=== PATIENT | female | born 1970 | race American Indian/Alaskan Native ===

== ENCOUNTER 2021-07-27 09:46 | Emergency (ER) | payer SELFPAY ==
[2021-07-27 10:11] VITALS: BP 182/109
[2021-07-27] MEDS ORDERED: dexAMETHasone 4 MG/ML VIAL IM ONE (10:40)
[2021-07-27] MEDS ORDERED: CYCLOBENZAPRINE 10 MG TAB PO ONE (10:40)
[2021-07-27] MEDS ORDERED: IBUPROFEN 800 MG TAB PO ONE (10:40)
--- NOTE | 2021-07-27 10:43 | Emergency Department Report ---
ED Back Pain/Injury HPI - General Chief Complaint: Back Pain/Injury Stated Complaint: LT LEG PAIN Time Seen by Provider: 07/27/21 10:35 Source: patient Limitations: No Limitations - History of Present Illness Initial Comments: 56 yo comes to er with left hip pain radiating to r leg. Seen last week at [place] and was told it was arthritis. She did not believe them so she comes here No trauma/fall Did not follow up with pcp ambulatory and nad in triage no cp no sob no dysuria no back pain no abd pain no vag d/c no fever no chills Complaint: other -: Gradual, week(s) Similar Symptoms Previously: Yes Place: home Radiation: none Severity: moderate Quality: burning Consistency: intermittent Improves With: immobilization Worsens With: movement Associated Symptoms: denies other symptoms. denies: confusion, weakness, chest pain, numbness, difficulty walking, cough, difficulty urinating, diaphoresis, incontinence, fever/chills, constipation, headaches, abdominal pain, loss of appetite, malaise, nausea/vomiting, rash, seizure, shortness of breath, syncope - Related Data Previous Rx's Medication Instructions Recorded Last Taken Type Cyclobenzaprine [Flexeril] 10 mg PO TID PRN #10 tablet 07/27/21 Unknown Rx Ibuprofen [Motrin] 800 mg PO Q8HR PRN #30 tablet 07/27/21 Unknown Rx predniSONE [Deltasone] 20 mg PO DAILY #5 tablet 07/27/21 Unknown Rx Allergies Allergy/AdvReac Type Severity Reaction Status Date / Time No Known Allergies Allergy Unverified 07/27/21 10:10 ED Review of Systems ROS: Stated complaint: LT LEG PAIN Other details as noted in HPI Comment: All other systems reviewed and negative ED Past Medical Hx - Past Medical History Previous Medical History?: Yes Hx Hypertension: Yes Hx Diabetes: Yes - Surgical History Past Surgical History?: Yes Additional Surgical History: tubal - Family History Family history: no significant - Social History Smoking Status: Never Smoker Substance Use Type: None - Medications Home Medications: Home Medications Medication Instructions Recorded Confirmed Last Taken Type Cyclobenzaprine [Flexeril] 10 mg PO TID PRN #10 tablet 07/27/21 Unknown Rx Ibuprofen [Motrin] 800 mg PO Q8HR PRN #30 tablet 07/27/21 Unknown Rx predniSONE [Deltasone] 20 mg PO DAILY #5 tablet 07/27/21 Unknown Rx ED Physical Exam - General Limitations: No Limitations General appearance: alert, in no apparent distress - Head Head exam: Present: atraumatic, normocephalic - Eye Eye exam: Present: normal appearance - ENT ENT exam: Present: mucous membranes moist - Neck Neck exam: Present: normal inspection - Respiratory Respiratory exam: Present: normal lung sounds bilaterally. Absent: respiratory distress - Cardiovascular Cardiovascular Exam: Present: regular rate, normal rhythm. Absent: systolic murmur, diastolic murmur, rubs, gallop - GI/Abdominal GI/Abdominal exam: Present: soft, normal bowel sounds - Extremities Exam Extremities exam: Present: normal inspection - Back Exam Back exam: Present: normal inspection - Neurological Exam Neurological exam: Present: alert, oriented X3 - Psychiatric Psychiatric exam: Present: normal affect, normal mood - Skin Skin exam: Present: warm, dry, intact, normal color. Absent: rash ED Course Vital Signs 07/27/21 10:10 Temperature 98.1 F Pulse Rate 86 Respiratory 20 Rate Blood Pressure 182/109 [Right] O2 Sat by Pulse 95 Oximetry ED Medical Decision Making - Medical Decision Making Vital Signs 07/27/21 10:10 Temperature 98.1 F Pulse Rate 86 Respiratory 20 Rate Blood Pressure 182/109 [Right] O2 Sat by Pulse 95 Oximetry medicated with decadron/flexeril/motrin in ER taking bp meds but pt states bp is elevated due to pain no cp no sob bg 110 pos right straight leg raise dc home with dc plan of care including diet/activity/meds/follow up. She will monitor bp and bg given prednisone. referral to local pcp provided - Differential Diagnosis sciatica Critical care attestation.: If time is entered above; I have spent that time in minutes in the direct care of this critically ill patient, excluding procedure time. ED Disposition Clinical Impression: Hypertension Sciatica Qualifiers: Laterality: right Qualified Code(s): M54.31 - Sciatica, right side Disposition: 01 HOME / SELF CARE / HOMELESS Is pt being admited?: No Does the pt Need Aspirin: No Condition: Stable Instructions: Hypertension (ED), Sciatica Additional Instructions: warm baths and compresses will help meds as ordered today monitor you bp monitor blood glucose follow up with pcp referral below continue home meds Referrals: ROLANDO GARAY MD [Staff Physician] - 3-5 Days Time of Disposition: 10:42
== END 2021-07-27 11:16 | disposition home or self-care (01) ==
LOC: ED 09:46
DX: I10 Essential (primary) hypertension (principal); M54.30 Sciatica, unspecified side; E11.9 Type 2 diabetes mellitus without complications; Z98.51 Tubal ligation status
CPT/HCPCS: 96372; 99282; J1100

== ENCOUNTER 2021-08-17 18:54 | Emergency (ER) | payer SELFPAY ==
[2021-08-17] MEDS ORDERED: SODIUM CHLORIDE 0.9% 1000 ML 1,000 ML IV ONE (20:09)
[2021-08-17] MEDS ORDERED: METOCLOPRAMIDE 10 MG/2 ML INJ IV ONE (20:09)
[2021-08-17] MEDS ORDERED: MECLIZINE 25 MG TAB PO ONE (20:09)
[2021-08-17] MEDS ORDERED: diphenhydrAMINE 50 MG/ML VIAL IV ONE (20:09)
[2021-08-17] MEDS ORDERED: diphenhydrAMINE 50 MG/ML VIAL ONE (20:31)
--- NOTE | 2021-08-17 20:45 | Emergency Department Report ---
ED Dizziness HPI - General Chief Complaint: Dizziness Stated Complaint: DIZZY Time Seen by Provider: 08/17/21 19:42 Source: EMS Mode of arrival: Stretcher Limitations: No Limitations - History of Present Illness Initial Comments: Patient is a 51-year-old female presents emergency room with complaints of dizziness that began approximately 3 hours ago. Patient states is worse with certain positions and last for a few seconds. She states that it feels like the room is spinning around. She has associated nausea and vomiting. Patient states that she also has a headache which is around her head. She denies any vision changes, diarrhea, numbness, weakness, speech disturbance, chest pain, shortness of breath. No allergies to medications. Past medical history of diabetes and hypertension. - Related Data Previous Rx's Medication Instructions Recorded Last Taken Type Cyclobenzaprine [Flexeril] 10 mg PO TID PRN #10 tablet 07/27/21 Unknown Rx Ibuprofen [Motrin] 800 mg PO Q8HR PRN #30 tablet 07/27/21 Unknown Rx predniSONE [Deltasone] 20 mg PO DAILY #5 tablet 07/27/21 Unknown Rx Butalb/Acetaminophen/Caffeine 1 cap PO Q8HR PRN #14 cap 08/17/21 Unknown Rx [Fioricet 50-300-40 mg CAP] Meclizine [Antivert] 25 mg PO TID PRN #30 tab 08/17/21 Unknown Rx Allergies Allergy/AdvReac Type Severity Reaction Status Date / Time No Known Allergies Allergy Verified 08/17/21 20:32 ED Review of Systems ROS: Stated complaint: DIZZY Other details as noted in HPI Comment: All other systems reviewed and negative ED Past Medical Hx - Past Medical History Hx Hypertension: Yes Hx Diabetes: Yes - Surgical History Additional Surgical History: tubal - Social History Smoking Status: Never Smoker Substance Use Type: None - Medications Home Medications: Home Medications Medication Instructions Recorded Confirmed Last Taken Type Cyclobenzaprine [Flexeril] 10 mg PO TID PRN #10 tablet 07/27/21 Unknown Rx Ibuprofen [Motrin] 800 mg PO Q8HR PRN #30 tablet 07/27/21 Unknown Rx predniSONE [Deltasone] 20 mg PO DAILY #5 tablet 07/27/21 Unknown Rx Butalb/Acetaminophen/Caffeine 1 cap PO Q8HR PRN #14 cap 08/17/21 Unknown Rx [Fioricet 50-300-40 mg CAP] Meclizine [Antivert] 25 mg PO TID PRN #30 tab 08/17/21 Unknown Rx ED Physical Exam - General Limitations: No Limitations General appearance: alert, in no apparent distress - Head Head exam: Present: atraumatic, normocephalic - Eye Eye exam: Present: normal appearance, PERRL, EOMI - ENT ENT exam: Present: mucous membranes moist - Neck Neck exam: Present: normal inspection, full ROM. Absent: tenderness, meningismus - Respiratory Respiratory exam: Present: normal lung sounds bilaterally. Absent: respiratory distress, wheezes, rales, rhonchi, stridor, chest wall tenderness, accessory muscle use, decreased breath sounds, prolonged expiratory - Cardiovascular Cardiovascular Exam: Present: regular rate, normal rhythm, normal heart sounds. Absent: systolic murmur, diastolic murmur, rubs, gallop - Neurological Exam Neurological exam: Present: alert, oriented X3, CN II-XII intact. Absent: motor sensory deficit - Psychiatric Psychiatric exam: Present: normal affect, normal mood - Skin Skin exam: Present: warm, dry, intact ED Course Vital Signs 08/17/21 08/17/21 08/17/21 22:52 22:57 22:58 Temperature 98.9 F Pulse Rate 95 H Pulse Rate [ 95 H Lying] Pulse Rate [ 96 H Sitting] Pulse Rate [ 109 H Standing] Respiratory 17 Rate Blood Pressure 168/99 Blood Pressure 168/99 [Lying] Blood Pressure 168/99 [Right] Blood Pressure 154/87 [Sitting] Blood Pressure 197/115 [Standing] O2 Sat by Pulse 97 Oximetry 08/17/21 08/17/21 08/17/21 23:01 23:15 23:31 Temperature Pulse Rate Pulse Rate [ Lying] Pulse Rate [ Sitting] Pulse Rate [ Standing] Respiratory Rate Blood Pressure 197/115 151/90 160/92 Blood Pressure [Lying] Blood Pressure [Right] Blood Pressure [Sitting] Blood Pressure [Standing] O2 Sat by Pulse 93 92 90 Oximetry 08/17/21 08/17/21 08/18/21 23:45 23:55 00:15 Temperature 98.0 F Pulse Rate 108 H Pulse Rate [ Lying] Pulse Rate [ Sitting] Pulse Rate [ Standing] Respiratory 17 18 Rate Blood Pressure 161/90 Blood Pressure [Lying] Blood Pressure 161/90 [Right] Blood Pressure [Sitting] Blood Pressure [Standing] O2 Sat by Pulse 91 91 Oximetry ED Medical Decision Making - Lab Data Result diagrams: 08/17/21 20:21 08/17/21 20:21 Lab Results 08/17/21 08/17/21 08/17/21 Range/Units 20:21 20:21 23:06 WBC 9.7 (4.5-11.0) K/mm3 RBC 4.62 (3.65-5.03) M/mm3 Hgb 13.6 (10.1-14.3) gm/dl Hct 41.4 (30.3-42.9) % MCV 90 (79-97) fl MCH 30 (28-32) pg MCHC 33 (30-34) % RDW 14.1 (13.2-15.2) % Plt Count 226 (140-440) K/mm3 Lymph % (Auto) 15.2 (13.4-35.0) % Sharp % (Auto) 3.8 (0.0-7.3) % Eos % (Auto) 0.2 (0.0-4.3) % Baso % (Auto) 0.3 (0.0-1.8) % Lymph # (Auto) 1.5 (1.2-5.4) K/mm3 Sharp # (Auto) 0.4 (0.0-0.8) K/mm3 Eos # (Auto) 0.0 (0.0-0.4) K/mm3 Baso # (Auto) 0.0 (0.0-0.1) K/mm3 Seg Neutrophils % 80.5 H (40.0-70.0) % Seg Neutrophils # 7.8 H (1.8-7.7) K/mm3 Sodium 140 (137-145) mmol/L Potassium 3.4 L (3.6-5.0) mmol/L Chloride 101.7 (98-107) mmol/L Carbon Dioxide 23 (22-30) mmol/L Anion Gap 19 mmol/L BUN 17 (7-17) mg/dL Creatinine 0.7 (0.6-1.2) mg/dL Estimated GFR > 60 ml/min BUN/Creatinine Ratio 24 % Glucose 194 H (65-100) mg/dL Calcium 10.1 (8.4-10.2) mg/dL Magnesium 1.90 (1.7-2.3) mg/dL Total Bilirubin 0.30 (0.1-1.2) mg/dL AST 20 (5-40) units/L ALT 20 (7-56) units/L Alkaline Phosphatase 87 (35-129) units/L Total Creatine Kinase 242 H (30-135) units/L Total Protein 8.2 (6.3-8.2) g/dL Albumin 4.9 (3.9-5) g/dL Albumin/Globulin Ratio 1.5 % Urine Color Yellow (Yellow) Urine Turbidity Clear (Clear) Urine pH 5.0 (5.0-7.0) Ur Specific [place] 1.018 (1.003-1.030) Urine Protein 30 mg/dl (Negative) mg/dL Urine Glucose (UA) 150 (Negative) mg/dL Urine Ketones Neg (Negative) mg/dL Urine Blood Neg (Negative) Urine Nitrite Neg (Negative) Urine Bilirubin Neg (Negative) Urine Urobilinogen < 2.0 (<2.0) mg/dL Ur Leukocyte Esterase Neg (Negative) Urine WBC (Auto) 1.0 (0.0-6.0) /HPF Urine RBC (Auto) 1.0 (0.0-6.0) /HPF U Epithel Cells (Auto) 7.0 (0-13.0) /HPF Urine Mucus Few /HPF Vital Signs 08/17/21 08/17/21 08/17/21 22:52 22:57 22:58 Temperature 98.9 F Pulse Rate 95 H Pulse Rate [ 95 H Lying] Pulse Rate [ 96 H Sitting] Pulse Rate [ 109 H Standing] Respiratory 17 Rate Blood Pressure 168/99 Blood Pressure 168/99 [Lying] Blood Pressure 168/99 [Right] Blood Pressure 154/87 [Sitting] Blood Pressure 197/115 [Standing] O2 Sat by Pulse 97 Oximetry 08/17/21 08/17/21 08/17/21 23:01 23:15 23:31 Temperature Pulse Rate Pulse Rate [ Lying] Pulse Rate [ Sitting] Pulse Rate [ Standing] Respiratory Rate Blood Pressure 197/115 151/90 160/92 Blood Pressure [Lying] Blood Pressure [Right] Blood Pressure [Sitting] Blood Pressure [Standing] O2 Sat by Pulse 93 92 90 Oximetry 08/17/21 08/17/21 08/18/21 23:45 23:55 00:15 Temperature 98.0 F Pulse Rate 108 H Pulse Rate [ Lying] Pulse Rate [ Sitting] Pulse Rate [ Standing] Respiratory 17 18 Rate Blood Pressure 161/90 Blood Pressure [Lying] Blood Pressure 161/90 [Right] Blood Pressure [Sitting] Blood Pressure [Standing] O2 Sat by Pulse 91 91 Oximetry - EKG Data EKG shows normal: sinus rhythm Rate: normal - EKG Data 08/17/21 23:48 LAD prolonged OK interval 209 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 COMPARISON: None available. FINDINGS: BRAIN/INTRACRANIAL STRUCTURES: Unenhanced CT images of the brain demonstrate no evidence of acute abnormality. Ventricles and sulci are in size and shape. Incidental note is made of a cavum septum pellucidum, a normal variant There is no evidence of acute ischemic injury, hemorrhage, or mass. There are no abnormal extra- axial fluid collections. Atherosclerotic vascular calcifications are present in the distal internal carotid arteries and vertebral arteries. EXTRACRANIAL STRUCTURES: Unremarkable. IMPRESSION: No acute abnormality. All CT scans at this location are performed using dose reduction to ALARA by means of automated exposure control. Signer Name: Hakan Dale MD Signed: 08/17/2021 9:47 PM Workstation Name: [id number] Transcribed By: AO Dictated By: Hakan Dale MD Electronically Authenticated By: Hakan Dale MD Signed Date/Time: 08/17/212146 DD/ 44 TD/TT: - Medical Decision Making Patient is a 51-year-old female presents emergency room with complaints of d izziness that began approximately 3 hours ago. Patient states is worse with certain positions and last for a few seconds. She states that it feels like the room is spinning around. She has associated nausea and vomiting. Patient states that she also has a headache which is around her head. She denies any vision changes, diarrhea, numbness, weakness, speech disturbance, chest pain, shortness of breath. No allergies to medications. Past medical history of diabetes and hypertension. Vitals are stable. Patient has no orthostatic hypotension. Patient has no focal neuro deficits on exam. Labs are stable. UA without evidence of UTI. EKG shows left anterior fascicular block, left axis d eviation, LVH, no old EKG for comparison, no signs of arrhythmia. CT head No acute abnormality. Patient given 1 L IV fluid, meclizine, Benadryl, Reglan and on reexamination dizziness completely resolved and she no longer had any nausea and had no further episodes of vomiting was able to tolerate p.o. intake without difficulty. Patient states that she was still having a headache like a band ar ound her head, patient given Fioricet. Discussed the importance of outpatient primary care, ENT, neurology follow-up. Advised patient Please take medication as prescribed as needed. Increase your fluid intake. Follow-up with your primary care doctor. Please take your blood pressure medication as prescribed your doctor. Follow-up with ear nose and throat doctor. Follow-up with a neurologist. Return to emergency room for any new or worsening symptoms. Critical care attestation.: If time is entered above; I have spent that time in minutes in the direct care of this critically ill patient, excluding procedure time. ED Disposition Clinical Impression: Dizziness, Elevated blood pressure reading Headache Qualifiers: Headache type: unspecified Headache chronicity pattern: acute headache Intractability: not intractable Qualified Code(s): R51.9 - Headache, unspecified Nausea & vomiting Qualifiers: Vomiting type: unspecified Qualified Code(s): R11.2 - Nausea with vomiting, unspecified Disposition: 01 HOME / SELF CARE / HOMELESS Is pt being admited?: No Does the pt Need Aspirin: No Condition: Stable Instructions: General Headache Without Cause, [id number], Dizziness Additional Instructions: Please take medication as prescribed as needed. Increase your fluid intake. Follow-up with your primary care doctor. Please take your blood pressure medication as prescribed your doctor. Follow-up with ear nose and throat doctor. Follow-up with a neurologist. Return to emergency room for any new or worsening symptoms. Prescriptions: Meclizine [Antivert] 25 mg PO TID PRN #30 tab PRN Reason: Vertigo Butalb/Acetaminophen/Caffeine [Fioricet 50-300-40 mg CAP] 1 cap PO Q8HR PRN #14 cap PRN Reason: headache Referrals: ROLANDO GARAY MD [Primary Care Provider] - 3-5 Days LIOR KAHN MD [Referring] - 3-5 Days KATERINA PERSAUD MD [Referring] - 3-5 Days Time of Disposition: 23:43 Print Language: UZBEK
[2021-08-17 21:08] LABS: Basophils % (Auto) 0.3 % (0.0-1.8); Eosinophils % (Auto) 0.2 % (0.0-4.3); Hematocrit 41.4 % (30.3-42.9); Hemoglobin 13.6 gm/dl (10.1-14.3); Lymphocytes # (Auto) 1.5 K/mm3 (1.2-5.4); Lymphocytes % (Auto) 15.2 % (13.4-35.0); Mean Corpuscular HGB Conc 33 % (30-34); Mean Corpuscular Volume 90 fl (79-97); Monocytes # (Auto) 0.4 K/mm3 (0.0-0.8); Monocytes % (Auto) 3.8 % (0.0-7.3); Platelet Count 226 K/mm3 (140-440); Red Blood Count 4.62 M/mm3 (3.65-5.03); Red Cell Distribution Width 14.1 % (13.2-15.2)
[2021-08-17 21:35] LABS: Alanine Aminotransferase 20 units/L (7-56); Albumin 4.9 g/dL (3.9-5); Blood Urea Nitrogen 17 mg/dL (7-17); Calcium 10.1 mg/dL (8.4-10.2); Hemolysis Index 4
[2021-08-17 21:38] LABS: BUN/Creatinine Ratio 24
--- NOTE | 2021-08-17 21:52 | Cat Scan Report ---
CT BRAIN: 08/17/2021 INDICATION / CLINICAL INFORMATION: dizziness, TOPETE, n/v. COMPARISON: None available. FINDINGS: BRAIN/INTRACRANIAL STRUCTURES: Unenhanced CT images of the brain demonstrate no evidence of acute abn ormality. Ventricles and sulci are in size and shape. Incidental note is made of a cavum septum pellucidum, a n ormal variant There is no evidence of acute ischemic injury, hemorrhage, or mass. There are no abnormal extra-axial fluid collections. Atherosclerotic vascular calcifications are present in the distal internal carotid arteries and verte bral arteries. EXTRACRANIAL STRUCTURES: Unremarkable. IMPRESSION: No acute abnormality. All CT scans at this location are performed using dose reduction to ALARA by means of automated expos ure control. Signer Name: Hakan Dale MD Signed: 08/17/2021 9:47 PM Workstation Name: [id number]
[2021-08-17 23:31] LABS: Bilirubin,Urine NEG (Negative); Blood,Urine NEG (Negative); Color,Urine Yellow (Yellow); Mucus,Urine FEW /HPF; Urobilinogen,Urine < 2.0 mg/dL (<2.0)
[2021-08-17] MEDS ORDERED: BUTALB/ACETAMINOPHEN/CAFFEINE TAB PO ONE (23:42)
[2021-08-18 00:15] VITALS: BP 161/90
--- NOTE | 2021-08-18 08:10 | Electrocardiograph Report ---
[facility] Test Date: 2021-08-17 Test Time: 23:18:05 Pat Name: SYL HAILE Department: Room: Gender: F Account Collector: EMMA : 1970 Requested By: NIKKI BARAKAT Order Number: [id number] Reading MD: Thuan Roque Measurements Intervals [place] Rate: 94 P: 64 WV: 209 QRS: -58 QRSD: 95 T: 132 QT: 411 QTc: 514 Interpretive Statements Sinus rhythm Prolonged WV interval Probable left atrial enlargement Left anterior fascicular block LVH with secondary repolarization abnormality Prolonged QT interval No previous ECG available for comparison Electronically Signed On 08-18-2021 8:09:52 EDT by Thuan Roque
== END 2021-08-18 00:16 | disposition home or self-care (01) ==
LOC: ED 18:54
DX: R42 Dizziness and giddiness (principal); R03.0 Elevated blood-pressure reading, without diagnosis of hypertension; R51.9 Headache, unspecified; R11.2 Nausea with vomiting, unspecified; I10 Essential (primary) hypertension; E11.9 Type 2 diabetes mellitus without complications; Z79.899 Other long term (current) drug therapy
CPT/HCPCS: 36415; 70450; 80053; 81001; 82550; 83735; 85025; 93005; 96361; 96374; 96375; 99284; J1200; J2765; J7030; 96365; Q0162

== ENCOUNTER 2021-08-21 17:01 | Emergency (ER) | payer SELFPAY ==
--- NOTE | 2021-08-21 23:13 | Emergency Department Report ---
ED General Adult HPI - General Chief complaint: High BP Stated complaint: HBP/DIZZINESS Source: EMS Mode of arrival: Stretcher Limitations: No Limitations - History of Present Illness Initial comments: Patient is a 51-year-old -[place] female with a history of hypertension and [id number]-cmpghcmsf diabetes who presents to the ED for medication refills of her hypertension and diabetes that she ran out of about a week ago. Patient states that she was initially evaluated about 4 days ago for persistent nausea, headache and lightheadedness and was discharged home on Fioricet but states that her blood pressure medications were not renewed. Patient states that she has continued to experience elevated blood pressure and persistent nausea and headache despite taking the medications that were given to her previously. Patient denies chest pain, shortness of breath, dizziness, syncope, nausea and vomiting, diarrhea, change in vision, numbness and tingling or weakness of upper and lower extremities bilaterally, abdominal pain, diaphoresis, palpitations, fever and chills or cough. MD Complaint: Blevated blood pressure; headache -: Sudden, week(s) (1) Location: head Severity scale (0 -10): 1 Quality: dull Consistency: intermittent Improves with: none Worsens with: none Associated Symptoms: denies other symptoms, headaches, nausea/vomiting. denies: confusion, chest pain, cough, diaphoresis, fever/chills, loss of appetite, malaise, rash, seizure, shortness of breath, syncope, weakness Treatments Prior to Arrival: none - Related Data Previous Rx's Medication Instructions Recorded Last Taken Type Cyclobenzaprine [Flexeril] 10 mg PO TID PRN #10 tablet 07/27/21 Unknown Rx Ibuprofen [Motrin] 800 mg PO Q8HR PRN #30 tablet 07/27/21 Unknown Rx predniSONE [Deltasone] 20 mg PO DAILY #5 tablet 07/27/21 Unknown Rx Butalb/Acetaminophen/Caffeine 1 cap PO Q8HR PRN #14 cap 08/17/21 Unknown Rx [Fioricet 50-300-40 mg CAP] Meclizine [Antivert] 25 mg PO TID PRN #30 tab 08/17/21 Unknown Rx Ibuprofen [Motrin] 800 mg PO Q8HR PRN #30 tablet 08/21/21 Unknown Rx Lisinopril/Hydrochlorothiazide 1 tab PO QDAY #30 tab 08/21/21 Unknown Rx [Zestoretic 20-12.5 mg] Metformin HCl [metFORMIN] 1,000 mg PO DAILY #30 tab 08/21/21 Unknown Rx Ondansetron [Zofran Odt] 4 mg PO Q8HR PRN #20 tab.rapdis 08/21/21 Unknown Rx Allergies Allergy/AdvReac Type Severity Reaction Status Date / Time No Known Allergies Allergy Verified 08/17/21 20:32 ED Review of Systems ROS: Stated complaint: HBP/DIZZINESS Other details as noted in HPI Constitutional: malaise, other (Elevated blood pressure). denies: chills, fever Eyes: denies: eye pain, eye discharge, vision change ENT: denies: ear pain, throat pain Respiratory: denies: cough, shortness of breath, wheezing Cardiovascular: denies: chest pain, palpitations Endocrine: no symptoms reported Gastrointestinal: nausea. denies: abdominal pain, diarrhea Genitourinary: denies: urgency, dysuria, discharge Musculoskeletal: denies: back pain, joint swelling, arthralgia Skin: denies: rash, lesions Neurological: headache. denies: weakness, paresthesias Psychiatric: denies: anxiety, depression Hematological/Lymphatic: denies: easy bleeding, easy bruising ED Past Medical Hx - Past Medical History Hx Hypertension: Yes Hx Diabetes: Yes - Surgical History Additional Surgical History: tubal - Social History Smoking Status: Never Smoker Substance Use Type: None - Medications Home Medications: Home Medications Medication Instructions Recorded Confirmed Last Taken Type Cyclobenzaprine [Flexeril] 10 mg PO TID PRN #10 tablet 07/27/21 Unknown Rx Ibuprofen [Motrin] 800 mg PO Q8HR PRN #30 tablet 07/27/21 Unknown Rx predniSONE [Deltasone] 20 mg PO DAILY #5 tablet 07/27/21 Unknown Rx Butalb/Acetaminophen/Caffeine 1 cap PO Q8HR PRN #14 cap 08/17/21 Unknown Rx [Fioricet 50-300-40 mg CAP] Meclizine [Antivert] 25 mg PO TID PRN #30 tab 08/17/21 Unknown Rx Ibuprofen [Motrin] 800 mg PO Q8HR PRN #30 tablet 08/21/21 Unknown Rx Lisinopril/Hydrochlorothiazide 1 tab PO QDAY #30 tab 08/21/21 Unknown Rx [Zestoretic 20-12.5 mg] Metformin HCl [metFORMIN] 1,000 mg PO DAILY #30 tab 08/21/21 Unknown Rx Ondansetron [Zofran Odt] 4 mg PO Q8HR PRN #20 tab.rapdis 08/21/21 Unknown Rx ED Physical Exam - General Limitations: No Limitations General appearance: alert, in no apparent distress - Head Head exam: Present: atraumatic, normocephalic, normal inspection - Eye Eye exam: Present: normal appearance, PERRL, EOMI Pupils: Present: normal accommodation - ENT ENT exam: Present: normal exam, normal orophraynx, mucous membranes moist, TM's normal bilaterally, normal external ear exam - Neck Neck exam: Present: normal inspection, full ROM - Respiratory Respiratory exam: Present: normal lung sounds bilaterally. Absent: respiratory distress, wheezes, rales, rhonchi, chest wall tenderness, accessory muscle use, decreased breath sounds - Cardiovascular Cardiovascular Exam: Present: regular rate, normal rhythm, normal heart sounds. Absent: systolic murmur, diastolic murmur, rubs, gallop - GI/Abdominal GI/Abdominal exam: Present: soft, normal bowel sounds. Absent: tenderness, guarding, rebound, hyperactive bowel sounds, hypoactive bowel sounds - Extremities Exam Extremities exam: Present: normal inspection, full ROM, normal capillary refill - Back Exam Back exam: Present: normal inspection, full ROM. Absent: tenderness, CVA tenderness (R), CVA tenderness (L), muscle spasm, paraspinal tenderness, vertebral tenderness - Neurological Exam Neurological exam: Present: alert, oriented X3, CN II-XII intact, normal gait, reflexes normal - Psychiatric Psychiatric exam: Present: normal affect, normal mood - Skin Skin exam: Present: warm, dry, intact, normal color. Absent: rash ED Course Vital Signs 08/21/21 08/21/21 17:08 22:37 Temperature 98.7 F Pulse Rate 94 H 80 Respiratory 16 Rate Blood Pressure 186/88 Blood Pressure 174/119 [Right] O2 Sat by Pulse 100 96 Oximetry ED Medical Decision Making - Medical Decision Making This is a 51-year-old -[place] female with a history of hypertension and vmc-mmycorz-ewzijdnie diabetes who presents to the ED for medication refills of her hypertension and diabetes that she ran out of about a week ago. Patient states that she was initially evaluated about 4 days ago for persistent nausea, headache and lightheadedness and was discharged home on Fioricet but states that her blood pressure medications were not renewed. Patient states that she has continued to experience elevated blood pressure and persistent nausea and headache despite taking the medications that were given to her previously. In the ED, patient is alert and oriented x3 and is not in any distress. Patient was treated in the ED for hypertension with clonidine 0.2 mg p.o. x1 and also given antiemetics Zofran 4 mg ODT sublingual x1. Patient was recently extensively worked up with unremarkable results. On reevaluation, patient's pain is well controlled medication. Patient headache resolved medication and patient blood pressure improved. Patient was therefore discharged home with a refill on her blood pressure medications and Metformin for her diabetes. Patient was advised to follow-up with her primary care physician in 7 to 10 days for reevaluation. Patient was advised return to the ED immediately if symptoms get worse. - Differential Diagnosis Tension headache; uncontrolled hypertension; cluster headache Critical care attestation.: If time is entered above; I have spent that time in minutes in the direct care of this critically ill patient, excluding procedure time. ED Disposition Clinical Impression: Uncontrolled stage 2 hypertension, Nausea and vomiting in adult patient Tension type headache Qualifiers: Headache chronicity pattern: unspecified pattern Intractability: not intractable Qualified Code(s): G44.209 - Tension-type headache, unspecified, not intractable Disposition: 01 HOME / SELF CARE / HOMELESS Is pt being admited?: No Does the pt Need Aspirin: No Condition: Stable Instructions: Tension Headache, Adult, [id number], Nausea and Vomiting, Adult, [id number], Hypertension, Adult, [id number], Hypertension (ED) Additional Instructions: Take medication with food, drink plenty of fluids and follow-up with your primary care physician in 7 to 10 days for reevaluation. Return to the ED immediately if symptoms get worse. Prescriptions: Metformin HCl [metFORMIN] 1,000 mg PO DAILY #30 tab Ibuprofen [Motrin] 800 mg PO Q8HR PRN #30 tablet PRN Reason: Pain , Severe (7-10) Lisinopril/Hydrochlorothiazide [Zestoretic 20-12.5 mg] 1 tab PO QDAY #30 tab Ondansetron [Zofran Odt] 4 mg PO Q8HR PRN #20 tab.rapdis PRN Reason: Nausea Referrals: ROLANDO GARAY MD [Staff Physician] - 3-5 Days Time of Disposition: 23:11 Print Language: VENEZUELAN
[2021-08-21] MEDS: cloNIDine 0.2 MG TAB PO ONE (23:35)
[2021-08-21 23:36] VITALS: BP 180/100
[2021-08-21] MEDS: ONDANSETRON 4 MG ODT TAB PO ONE (23:36)
--- NOTE | 2021-08-23 14:18 | Electrocardiograph Report ---
[facility] Test Date: 2021-08-21 Test Time: 17:11:37 Pat Name: SYL HAILE Department: Room: Gender: F Privacy Compliance Manager: LIYA : 1970 Requested By: JANIS BLACKMAN Order Number: [id number] Reading MD: Alona Boyd Measurements Intervals [place] Rate: 92 P: 55 WA: 199 QRS: -60 QRSD: 93 T: 119 QT: 389 QTc: 482 Interpretive Statements Sinus rhythm Borderline prolonged WA interval Probable left atrial enlargement Left anterior fascicular block LVH with secondary repolarization abnormality Compared to ECG 08/17/2021 23:18:05 No significant change Electronically Signed On 08-23-2021 14:18:14 EDT by Alona Boyd
== END 2021-08-21 23:27 | disposition home or self-care (01) ==
LOC: ED 17:01
DX: I10 Essential (primary) hypertension (principal); R11.2 Nausea with vomiting, unspecified; G44.209 Tension-type headache, unspecified, not intractable; E11.9 Type 2 diabetes mellitus without complications; Z98.51 Tubal ligation status; Z79.899 Other long term (current) drug therapy
CPT/HCPCS: 93005; 99283; J3490; Q0162